=== PATIENT | male | born 1975 | race Caucasian/White ===

== ENCOUNTER 2021-07-04 02:23 | Emergency (ER) | payer MEDICAID ==
[~2021-07-04] VITALS: Ht 170.2 cm; Wt 63.5 kg
--- NOTE | 2021-07-04 02:30 | NUR ---
PT AMBULATED TO ER C/O N/V/D SINCE 9PM YESTERDAY (07/03/21), PT STATES HE HAS PREVIOUS HX OF IBS. A/O X4, DENIES CP/PRESSURE. AFEBRILE.
--- NOTE | 2021-07-04 02:35 | NUR ---
DR. ESCOBAR AT BEDSIDE, MSE IN PROGRESS.
[2021-07-04] MEDS ORDERED: PROCHLORPERAZINE EDISYLATE 10 MG/2 ML VIAL IV ONE (02:45)
[2021-07-04] MEDS ORDERED: IV NORMAL SALINE 1000 ML BAG IV ONE (02:45)
[2021-07-04] MEDS ORDERED: HYDROMORPHONE 1 MG/1 ML DISP.SYRIN IV ONE ×2 (02:45→04:00)
[2021-07-04] MEDS ORDERED: HYDROMORPHONE 1 MG/1 ML DISP.SYRIN ONE ×2 (02:47→04:06)
[2021-07-04] MEDS ORDERED: PROCHLORPERAZINE EDISYLATE 10 MG/2 ML VIAL ONE (02:47)
[2021-07-04 02:57] LABS: HEMATOCRIT 43.1 % (36.7-47.1); MEAN CORPUSCULAR HEMOGLOBIN 25.1 uug (23.8-33.4); MEAN CORPUSCULAR VOLUME 76.6 fL (73.0-96.2); PLATELET COUNT (AUTO) 360 K/uL (152-348)
[2021-07-04 02:59] LABS: POTASSIUM 4.5 mmol/L (3.5-5.1)
[2021-07-04] MEDS ORDERED: IV NS 1000 ML 1,000 ML IV ONE ×2 (03:00→05:30)
[2021-07-04 03:05] LABS: BILIRUBIN,DIRECT 0.1 mg/dL (0.0-0.2); BILIRUBIN,TOTAL 0.4 mg/dL (0.2-1.0); TOTAL PROTEIN, SERUM 7.9 g/dL (6.4-8.2)
[2021-07-04] MEDS ORDERED: levoFLOXacin 750 MG/D5W 150 ML PIGGYBACK IV ONE (03:45)
[2021-07-04] MEDS ORDERED: IOHEXOL 300MG/ML 100 ML INFUS..BTL ONE (03:47)
[2021-07-04] MEDS ORDERED: IV NORMAL SALINE 250 ML BAG ONE (03:49)
[2021-07-04] MEDS ORDERED: SWABABLE VALVE TRANSFER SET EA MC ONE ×2 (03:51)
[2021-07-04] MEDS ORDERED: ONDANSETRON 4 MG/2 ML VIAL IV ONE (04:00)
[2021-07-04] MEDS ORDERED: ONDANSETRON 4 MG/2 ML VIAL ONE (04:05)
[2021-07-04] MEDS ORDERED: levoFLOXacin 750MG/D5W 150 ML IV ONE (04:06)
--- NOTE | 2021-07-04 04:20 | NUR ---
PT TAKEN DOWN FOR CT.
--- NOTE | 2021-07-04 04:35 | NUR ---
PT RETURNED FROM CT.
[2021-07-04] MEDS ORDERED: OXYC-128 PO (05:22)
[2021-07-04] MEDS ORDERED: LEVO500T90 PO (05:22)
[2021-07-04] MEDS ORDERED: PROC-11 PO (05:22)
--- NOTE | 2021-07-04 06:28 | NUR ---
Patient discharged to home in stable condition. Written and verbal after care instructions given. Patient verbalizes understanding of instructions. Stressed follow up or return to ER for worsening s/s. Steady gait, denies any pain/discomfort. No n/v/d. No H A/dizzyness. Accompanied by father.
[2021-07-04 06:30] VITALS: BP 130/70
== END 2021-07-04 07:01 | disposition home or self-care (01) ==
LOC: ER 02:26
DX: A04.9 Bacterial intestinal infection, unspecified (principal); K58.9 Irritable bowel syndrome, unspecified
CPT/HCPCS: 36415; 74177; 80048; 80076; 83735; 85025; 96361; 96365; 96375; 96376; 99285; J0780; J1170 ×2; J1956; J2405; Q9967; A4663; J7040